=== PATIENT | male | born 1985 | race Caucasian/White ===

== ENCOUNTER 2016-11-04 15:14 | Emergency (ER) | payer OTHER ==
[~2016-11-04] VITALS: Ht 175.3 cm; Wt 75.0 kg
[~2016-11-04 15:14] MED LIST: OMEP20TA39 PO; XANA0.5T PO
[2016-11-04 16:00] VITALS: BP 117/68; PULSE 85; RESP 16; TEMP 98; O2SAT 96
[2016-11-04] MEDS ORDERED: XANA2TAB2 PO (16:05)
[2016-11-04] MEDS ORDERED: PROZ40CA PO (16:05)
[2016-11-04 17:08] LABS: AUTOMATED NEUTROPHIL # 6.1 TH/MM3 (1.8-7.7); BASOPHIL # 0.1 TH/MM3 (0-0.2); BASOPHIL % 0.7 % (0.0-2.0); EOSINOPHIL # 0.1 TH/MM3 (0-0.4); EOSINOPHIL % 0.6 % (0.0-4.0); HEMATOCRIT 44.1 % (39.0-51.0); HEMO FLAGS DIFF FINAL; LYMPH % 25.1 % (9.0-44.0); LYMPHOCYTE # 2.3 TH/MM3 (1.0-4.8); MEAN CELL VOLUME 98.5 FL (80.0-100.0); MEAN CORPUSCULAR HEMOGLOBIN 34.2 PG (27.0-34.0); MEAN CORPUSCULAR HGB CONC 34.7 % (32.0-36.0); MONO % 6.1 % (0.0-8.0); NEUT % 67.5 % (16.0-70.0); PLATELET COUNT 192 TH/MM3 (150-450); RED BLOOD COUNT 4.48 MIL/MM3 (4.50-5.90)
[2016-11-04 17:28] LABS: ALCOHOL 171 MG/DL (0-5); ALKALINE PHOSPHATASE 81 U/L (45-117); ALT (GPT) 40 U/L (12-78); ANION GAP 12 MEQ/L (5-15); AST (GOT) 58 U/L (15-37); BICARBONATE 22.7 MEQ/L (21.0-32.0); BLOOD UREA NITROGEN 12 MG/DL (7-18); CHLORIDE 103 MEQ/L (98-107); GLOMERULAR FILTRATION RATE 104 ML/MIN (>89); POTASSIUM 3.6 MEQ/L (3.5-5.1); SODIUM (NA) 138 MEQ/L (136-145); TOTAL BILIRUBIN ADULT 0.4 MG/DL (0.2-1.0)
--- NOTE | 2016-11-04 17:54 | PD ---
HPI Chief Complaint: Psychiatric Symptoms Time Seen by Provider: 16:43 Travel History International Travel<30 days: No Contact w/Intl Traveler<30days: No Traveled to known affect area: No History of Present Illness HPI 31-year-old male comes in by enforcement under William act according to the paperwork De has been dealing with depression and is having suicidal thoughts and making suicidal statements to his parents. Patient has a history of depression and anxiety. He reports he was off of his medications due to insurance purposes but was recently put back on his fluoxetine and Xanax. He reports he's been drinking heavily to deal with his depression. He drinks liquor and beer daily at times up to 18 beers or "handle of liquor" daily. Last drink 2 PM today. He reports alcohol withdrawal in the past without seizures. He is requesting psychiatric evaluation. He does not report suicidal ideation to me during the interview. He does report severe depression. [facility] Past Medical History Narrative Medical Depression and anxiety and alcohol abuse Autoimmune Disease: No Anxiety: Yes Cardiovascular Problems: No Diminished Hearing: No Endocrine: No Genitourinary: No Musculoskeletal: No Neurologic: No Reproductive: No Respiratory: No Tetanus Vaccination: Unknown Influenza Vaccination: No Past Surgical History Arteriovenous Shunt: No Genitourinary Surgery: No Oral Surgery: Yes Other Surgery: Yes (PLASTIC FACIAL ) Social History Alcohol Use: Yes (DAILY) Tobacco Use: Yes (1/2 PPD) Substance Use: Yes (MARIJUANA, MUSHROOMS) Allergies-Medications (Allergen,Severity, Reaction): Coded Allergies: No Known Allergies (Verified , 11/04/16) Reported Meds & Prescriptions Reported Meds & Active Scripts Active Reported Prozac (Fluoxetine HCl) 40 Mg Cap 80 Mg PO QID Xanax (Alprazolam) 2 Mg Tab 2 Mg PO TID PRN Review of Systems Except as stated in HPI: all other systems reviewed are Neg Physical Exam Narrative GENERAL: Well-nourished, well-developed patient. Patient is calm SKIN: Focused skin assessment warm/dry. HEAD: Normocephalic. EYES: No scleral icterus. No injection or drainage. NECK: Supple, trachea midline. No JVD or lymphadenopathy. CARDIOVASCULAR: Regular rate and rhythm without murmurs, gallops, or rubs. RESPIRATORY: Breath sounds equal bilaterally. No accessory muscle use. GASTROINTESTINAL: Abdomen soft, non-tender, nondistended. MUSCULOSKELETAL: No cyanosis, or edema. BACK: Nontender without obvious deformity. No CVA tenderness. PSYCHIATRIC: No delusional thought processes. No hallucinations. Data Data Last Documented VS Vital Signs Date Time Temp Pulse Resp B/P (MAP) Pulse Ox O2 Delivery O2 Flow Rate FiO2 11/04/16 16:04 85 16 11/04/16 16:00 98.0 117/68 (84) 96 Room Air Orders Orders Complete Blood Count With Diff (11/04/16 16:52) Comprehensive Metabolic Panel (11/04/16 16:52) Psych Screen (11/04/16 16:52) Drug Screen, Random Urine (11/04/16 16:52) Alcohol (Ethanol) (11/04/16 16:52) Labs Laboratory Tests Test 11/04/16 16:50 White Blood Count 9.0 TH/MM3 Red Blood Count 4.48 MIL/MM3 Hemoglobin 15.3 GM/DL Hematocrit 44.1 % Mean Corpuscular Volume 98.5 FL Mean Corpuscular Hemoglobin 34.2 PG Mean Corpuscular Hemoglobin Concent 34.7 % Red Cell Distribution Width 14.0 % Platelet Count 192 TH/MM3 Mean Platelet Volume 6.9 FL Neutrophils (%) (Auto) 67.5 % Lymphocytes (%) (Auto) 25.1 % Monocytes (%) (Auto) 6.1 % Eosinophils (%) (Auto) 0.6 % Basophils (%) (Auto) 0.7 % Neutrophils # (Auto) 6.1 TH/MM3 Lymphocytes # (Auto) 2.3 TH/MM3 Monocytes # (Auto) 0.5 TH/MM3 Eosinophils # (Auto) 0.1 TH/MM3 Basophils # (Auto) 0.1 TH/MM3 CBC Comment DIFF FINAL Differential Comment Blood Urea Nitrogen 12 MG/DL Creatinine 0.85 MG/DL Random Glucose 97 MG/DL Total Protein 7.3 GM/DL Albumin 3.6 GM/DL Calcium Level 8.2 MG/DL Alkaline Phosphatase 81 U/L Aspartate Amino Transf (AST/SGOT) 58 U/L Alanine Aminotransferase (ALT/SGPT) 40 U/L Total Bilirubin 0.4 MG/DL Sodium Level 138 MEQ/L Potassium Level 3.6 MEQ/L Chloride Level 103 MEQ/L Carbon Dioxide Level 22.7 MEQ/L Anion Gap 12 MEQ/L Estimat Glomerular Filtration Rate 104 ML/MIN Urine Opiates Screen NEG Urine Barbiturates Screen NEG Urine Amphetamines Screen NEG Urine Benzodiazepines Screen POS Urine Cocaine Screen NEG Urine Cannabinoids Screen NEG Ethyl Alcohol Level 171 MG/DL MDM Medical Decision Making Medical Screen Exam Complete: Yes Emergency Medical Condition: Yes Differential Diagnosis Depression, major depressive disorder, anxiety, suicidal ideation, alcohol dependence/abuse Narrative Course 31-year-old male here under William act for making suicidal statements to his family. Patient has a history of depression and anxiety. Patient has history of alcohol abuse. He is requesting evaluation by psych. He reports his depression has worsened and his fluoxetine is not controlling it. He denies suicidal ideation during my interview. Patient will be medically evaluated in the emergency room and once cleared receive psychiatric evaluation. Patient agrees to this plan CBC unremarkable BMP: Mild elevation of AST likely due to his alcohol abuse Tox screen: Positive for benzos Alcohol: 171 Mental health screening discussed with the patient. Psychiatric screen ordered. Patient is medically cleared and pending psych screening Kathy Denney Nov 04, 2016 17:54
[2016-11-04] MEDS ORDERED: FAMOTIDINE 20 MG TAB PO ONE (21:30)
[2016-11-04] MEDS ORDERED: ONDANSETRON ODT 4 MG TAB PO ONE (21:30)
[2016-11-04] MEDS ORDERED: FLUMAZENIL 0.5 MG/5 ML VIAL IV PUSH PRN (23:45)
[2016-11-04] MEDS ORDERED: LORazepam 1 MG TAB PO PRN (23:45)
[2016-11-04] MEDS ORDERED: LORazepam 2 MG/ML VIAL IV PUSH PRN ×4 (23:45)
[2016-11-05 02:23] VITALS: BP 129/77; PULSE 70; RESP 18; TEMP 97.3; O2SAT 96
[2016-11-05 06:54] VITALS: BP 160/91; PULSE 55; RESP 18; TEMP 96.9; O2SAT 97
[2016-11-05] MEDS: LORazepam 2 MG TAB PO PRN ×3 (07:15→21:42)
[2016-11-05 11:44] VITALS: BP 139/77; PULSE 77; RESP 20
[2016-11-05 15:45] VITALS: BP 132/90; PULSE 78; RESP 18
[2016-11-05 18:00] VITALS: BP 145/94; PULSE 75; RESP 18
[2016-11-05 22:16] VITALS: BP 150/91; PULSE 86; RESP 17; TEMP 97.1; O2SAT 98
[2016-11-06 06:29] VITALS: BP 146/98; PULSE 50; RESP 16; TEMP 97.3; O2SAT 98
[2016-11-06 08:27] VITALS: BP 136/89; PULSE 55; RESP 18
--- NOTE | 2016-11-06 10:21 | PD ---
History of Present Illness Chief Complaint: Psychiatric Symptoms Time Seen by Provider: 10:15 Travel History International Travel<30 Days: No Contact w/Intl Traveler<30days: No Known affected area: No Legal Status Legal Status: William Act William Act Signed By: Rigoberto Kinney History of Present Illness: 31-year-old male brought in under a William act for reported suicidal ideation and significant depression. Patient is currently denying any suicidal or homicidal ideation, plan or intent. He has no psychotic symptoms and his cognition is intact. He is verbally gina for safety and he is competent to do so. This physician notes the patient has been drinking heavily and taking Xanax and Prozac. The medications have been started recently. This physician reminded the patient that alcohol is a central nervous system depressant and is only making his depression worse. Furthermore, the combination of alcohol and Xanax are making his depression worse and the dangers of this behavior are increased. The patient was offered treatment for his alcohol abuse but declines. He is stating he wants to go home and take care of some of his legal responsibilities. This physician feels the patient is competent to make decisions. PFSH Past Medical History Autoimmune Disease: No Anxiety: Yes Cardiovascular Problems: No Diminished Hearing: No Endocrine: No Genitourinary: No Musculoskeletal: No Neurologic: No Reproductive: No Respiratory: No Tetanus Vaccination: Unknown Influenza Vaccination: No Past Surgical History Arteriovenous Shunt: No Genitourinary Surgery: No Oral Surgery: Yes Other Surgery: Yes (PLASTIC FACIAL ) Psychiatric History Psychiatric History Hx Psychiatric Treatment: HX OF DEPRESSION/ANXIETY History of Inpatient Treatment: No Guns or firearms in home: No Social History Hx Alcohol Use: Yes (DAILY) Hx Tobacco Use: Yes (1/2 PPD) Hx Substance Use: Yes (MARIJUANA, MUSHROOMS) Substance Use Type: Alcohol, Marijuana Hx of Substance Use Treatment: No Allergies-Medications (Allergen,Severity, Reaction): Coded Allergies: No Known Allergies (Verified , 11/04/16) Reported Meds & Prescriptions Reported Meds & Active Scripts Active Reported Prozac (Fluoxetine HCl) 40 Mg Cap 80 Mg PO DAILY Xanax (Alprazolam) 2 Mg Tab 2 Mg PO TID PRN Review of Systems Except as stated in HPI: all other systems reviewed are Neg Exam Alert: Yes [place]: Person, Place, Date, Situation Mood: Calm Affect: Appropriate Speech: Clear, Logical Eye Contact: Normal Memory Intact: Immediate, Recent, Remote Delusions: No Insight/Judgement Adequate MDM Medical Decision Making Medical Record Reviewed: Yes Assessment/Plan Patient was interviewed at bedside, medical record was reviewed and case discussed with Thiago, the nurse. Patient obviously has alcohol abuse problem which is making any depression diagnosis and treatment unclear. This physician repeatedly offered treatment for his alcohol problem but the patient declined. The patient is denying any suicidal or homicidal ideation, plan or intent. He is verbally gina for safety and he is competent to do so. He would like to go home and take care of his legal responsibilities. This physician does not feel he qualifies for William act or involuntary psychiatric hospitalization at this time. Orders Orders Diet Regular Basic (11/05/16 Lunch) Diet Regular Basic (11/05/16 Dinner) Diet Regular Basic (11/06/16 Breakfast) Results Vital Signs Date Time Temp Pulse Resp B/P (MAP) Pulse Ox O2 Delivery O2 Flow Rate FiO2 11/06/16 08:27 55 18 136/89 (105) Room Air 11/06/16 06:29 97.3 50 16 146/98 (114) 98 Room Air 11/05/16 22:16 97.1 86 17 150/91 (110) 98 Room Air 11/05/16 18:00 75 18 145/94 (111) Room Air 11/05/16 15:45 78 18 132/90 (104) Room Air 11/05/16 11:44 77 20 139/77 (97) Diagnosis Primary Impression: Alcohol abuse Additional Impression: Benzodiazepine abuse Problem Qualifiers Ezio Diamond MD Nov 06, 2016 10:21
--- NOTE | 2016-11-06 10:34 | PD ---
Physical Exam Time Seen by Provider: 10:32 Narrative Please refer to previous providers documentation for details surrounding the patient's current visit. Data Data Last Documented VS Vital Signs Date Time Temp Pulse Resp B/P (MAP) Pulse Ox O2 Delivery O2 Flow Rate FiO2 11/06/16 08:27 55 18 136/89 (105) Room Air 11/06/16 06:29 97.3 98 Orders Orders Complete Blood Count With Diff (11/04/16 16:52) Comprehensive Metabolic Panel (11/04/16 16:52) Psych Screen (11/04/16 16:52) Drug Screen, Random Urine (11/04/16 16:52) Alcohol (Ethanol) (11/04/16 16:52) Ondansetron Odt (Zofran Odt) (11/04/16 21:30) Famotidine (Pepcid) (11/04/16 21:30) Lorazepam (Ativan) (11/04/16 23:45) Lorazepam (Ativan) (11/04/16 23:45) Lorazepam Inj (Ativan Inj) (11/04/16 23:45) Lorazepam Inj (Ativan Inj) (11/04/16 23:45) Lorazepam Inj (Ativan Inj) (11/04/16 23:45) Flumazenil Inj (Romazicon Inj) (11/04/16 23:45) Lorazepam Inj (Ativan Inj) (11/04/16 23:45) Diet Regular Basic (11/05/16 Breakfast) Diet Regular Basic (11/05/16 Lunch) Diet Regular Basic (11/05/16 Dinner) Diet Regular Basic (11/06/16 Breakfast) Labs Laboratory Tests Test 11/04/16 16:50 White Blood Count 9.0 TH/MM3 Red Blood Count 4.48 MIL/MM3 Hemoglobin 15.3 GM/DL Hematocrit 44.1 % Mean Corpuscular Volume 98.5 FL Mean Corpuscular Hemoglobin 34.2 PG Mean Corpuscular Hemoglobin Concent 34.7 % Red Cell Distribution Width 14.0 % Platelet Count 192 TH/MM3 Mean Platelet Volume 6.9 FL Neutrophils (%) (Auto) 67.5 % Lymphocytes (%) (Auto) 25.1 % Monocytes (%) (Auto) 6.1 % Eosinophils (%) (Auto) 0.6 % Basophils (%) (Auto) 0.7 % Neutrophils # (Auto) 6.1 TH/MM3 Lymphocytes # (Auto) 2.3 TH/MM3 Monocytes # (Auto) 0.5 TH/MM3 Eosinophils # (Auto) 0.1 TH/MM3 Basophils # (Auto) 0.1 TH/MM3 CBC Comment DIFF FINAL Differential Comment Blood Urea Nitrogen 12 MG/DL Creatinine 0.85 MG/DL Random Glucose 97 MG/DL Total Protein 7.3 GM/DL Albumin 3.6 GM/DL Calcium Level 8.2 MG/DL Alkaline Phosphatase 81 U/L Aspartate Amino Transf (AST/SGOT) 58 U/L Alanine Aminotransferase (ALT/SGPT) 40 U/L Total Bilirubin 0.4 MG/DL Sodium Level 138 MEQ/L Potassium Level 3.6 MEQ/L Chloride Level 103 MEQ/L Carbon Dioxide Level 22.7 MEQ/L Anion Gap 12 MEQ/L Estimat Glomerular Filtration Rate 104 ML/MIN Urine Opiates Screen NEG Urine Barbiturates Screen NEG Urine Amphetamines Screen NEG Urine Benzodiazepines Screen POS Urine Cocaine Screen NEG Urine Cannabinoids Screen NEG Ethyl Alcohol Level 171 MG/DL MDM Medical Record Reviewed: Yes Supervised Visit with ELVIN: No Narrative Course Pt has been seen and evaluated by psychiatry. BA has been lifted. Pt will be discharged at this time. Diagnosis Primary Impression: Alcohol abuse Additional Impression: Benzodiazepine abuse Referrals: [facility] (Out patient) Primary Care Physician Patient Instructions: Abuse of Alcohol (ED), General Instructions Additional Instruction: follow up with a primary care provider Return to ED with acute worsening of symptoms Med/Other Pt SpecificInfo: No Change to Meds Disposition: 01 DISCHARGE HOME Condition: Stable Michelle Perdomo Nov 06, 2016 10:33
== END 2016-11-06 13:01 | disposition home or self-care (01) ==
LOC: NEPD 15:14 → NEPJ 11-06 13:01
DX: F10.10 Alcohol abuse, uncomplicated (principal); F19.10 Other psychoactive substance abuse, uncomplicated; R45.851 Suicidal ideations; F32.9 Major depressive disorder, single episode, unspecified; F41.9 Anxiety disorder, unspecified; F17.200 Nicotine dependence, unspecified, uncomplicated; Z79.899 Other long term (current) drug therapy
CPT/HCPCS: 80053; 80307; 85025; 99284